=== PATIENT | male | born 1965 | race Caucasian/White ===

== ENCOUNTER 2017-05-24 13:38 | Inpatient (IN) | payer BC ==
[~2017-05-24] VITALS: Ht 193 cm; Wt 96.2 kg
[2017-05-24] MEDS ORDERED: PLEASE ENTER ALLERGIES MC SCH ×2 (14:30)
[2017-05-24] MEDS ORDERED: SODIUM CHLORIDE FLUSH 10ML SYR IVF ONE (14:30)
[2017-05-24 14:55] LABS: BLOOD UREA NITROGEN 17 mg/dL (7-18)
[2017-05-24] MEDS ORDERED: SODIUM CHLORIDE 0.9% 1,000 ML IV ONE (14:55)
[2017-05-24 15:04] LABS: IS PT STATUS REG ER OR PRE ER? YES
[2017-05-24] MEDS ORDERED: HEPARIN 5,000 UNITS/ML, 1ML ONE (15:23)
[2017-05-24] MEDS ORDERED: HEPARIN 25,000 UNITS/500ML PMX 500 ML ONE (15:24)
[2017-05-24] MEDS ORDERED: HEPARIN 5,000 UNITS/ML, 1ML IV ONE (15:30)
[2017-05-24] MEDS: HEPARIN 25,000 UNITS/500ML PMX 500 ML IV PRN (16:11)
[2017-05-24] MEDS ORDERED: ONDANSETRON 2MG/ML, 2ML IVPush PRN (16:30)
[2017-05-24] MEDS ORDERED: DOCUSATE 100 MG CAPSULE PO PRN (16:30)
[2017-05-24] MEDS ORDERED: ACETAMINOPHEN 325 MG TABLET PO PRN (16:30)
[2017-05-24] MEDS ORDERED: morphine SULFATE 10 MG/ML, 1ML IVPush PRN (16:30)
[2017-05-24] MEDS ORDERED: CALCIUM CARBONATE 500 MG TAB.CHEW PO PRN (16:30)
[2017-05-24] MEDS ORDERED: ONDANSETRON ODT 4 MG PO PRN (16:30)
[2017-05-24] MEDS ORDERED: NITROGLYCERIN 0.4 MG BOTTLE (25 TABS) SL PRN (16:30)
[2017-05-24 16:59] VITALS: BP 125/88
[2017-05-24] MEDS: SODIUM CHLORIDE 0.9% 1,000 ML IV SCH (17:03)
[2017-05-24] MEDS ORDERED: ALBUTEROL SULFATE 2.5 MG/3 ML NPPB PRN (17:30)
[2017-05-24] MEDS ORDERED: METH4TAB2 PO (18:17)
[2017-05-24] MEDS ORDERED: ALBUTEROL SULFATE 2.5 MG/3 ML NPPB SCH (21:00)
[2017-05-24] MEDS: GUAIFENESIN 100 MG/5 ML, 10ML UDC PO PRN (21:38)
[2017-05-24] MEDS: FAMOTIDINE 20 MG/2 ML IVPush SCH (21:38)
[2017-05-24 21:48] VITALS: BP 115/74
[2017-05-24 22:35] LABS: IS PT STATUS REG ER OR PRE ER? NO
[2017-05-24] MEDS: HEPARIN 5,000 UNITS/ML, 1ML IV PRN (22:48)
[2017-05-25] MEDS: SODIUM CHLORIDE 0.9% 1,000 ML IV SCH ×3 (02:47→21:01)
[2017-05-25 02:50] VITALS: BP 113/75
[2017-05-25 03:33] LABS: IS PT STATUS REG ER OR PRE ER? NO
[2017-05-25 05:37] LABS: BLOOD UREA NITROGEN 21 mg/dL (7-18)
[2017-05-25] MEDS: ASPIRIN 325 MG TABLET EC PO SCH (05:55)
[2017-05-25] MEDS: HEPARIN 5,000 UNITS/ML, 1ML IV PRN ×2 (05:55→14:33)
[2017-05-25 07:20] VITALS: BP 110/79
[2017-05-25] MEDS: FAMOTIDINE 20 MG/2 ML IVPush SCH ×2 (09:28→21:00)
[2017-05-25] MEDS: GUAIFENESIN 100 MG/5 ML, 10ML UDC PO PRN (09:28)
[2017-05-25] MEDS ORDERED: LIDOCAINE 1%, 20ML ONE (10:49)
[2017-05-25] MEDS ORDERED: MIDAZOLAM 1 MG/ML, 5ML ONE (11:03)
[2017-05-25] MEDS ORDERED: FENTANYL PF 100 MCG/2ML ONE (11:04)
[2017-05-25] MEDS: HEPARIN 25,000 UNITS/500ML PMX 500 ML IV PRN (12:08)
[2017-05-25 12:35] VITALS: BP 107/71
[2017-05-25 18:58] VITALS: BP 132/87
[2017-05-25] MEDS ORDERED: METHOCARBAMOL 500 MG TABLET PO ONE (20:00)
[2017-05-25] MEDS: HYDROcodone/APAP 5/325 TABLET PO PRN (22:27)
[2017-05-26 01:30] VITALS: BP 114/70
[2017-05-26] MEDS: HYDROcodone/APAP 5/325 TABLET PO PRN ×2 (01:58→05:36)
[2017-05-26] MEDS: SODIUM CHLORIDE 0.9% 1,000 ML IV SCH (05:37)
[2017-05-26] MEDS: ASPIRIN 325 MG TABLET EC PO SCH (05:37)
[2017-05-26 07:54] VITALS: BP 109/74
[2017-05-26] MEDS: FAMOTIDINE 20 MG/2 ML IVPush SCH ×2 (07:55→21:13)
[2017-05-26] MEDS: HEPARIN 25,000 UNITS/500ML PMX 500 ML IV PRN (10:29)
[2017-05-26 10:50] LABS: BLOOD UREA NITROGEN 21 mg/dL (7-18)
[2017-05-26] MEDS: HEPARIN 5,000 UNITS/ML, 1ML IV PRN (11:23)
[2017-05-26] MEDS: LIDODERM 5% PATCH TD SCH (12:16)
[2017-05-26 15:33] VITALS: BP 120/80
[2017-05-26] MEDS: GUAIFENESIN 100 MG/5 ML, 10ML UDC PO PRN (18:42)
[2017-05-26 20:12] VITALS: BP 130/87
[2017-05-26] MEDS: POLYETHYLENE GLYCOL 17 GM PACKET PO PRN (21:13)
[2017-05-26] MEDS: BENZONATATE 100 MG CAPSULE PO PRN (22:03)
[2017-05-27] MEDS: HEPARIN 25,000 UNITS/500ML PMX 500 ML IV PRN ×2 (00:11→14:02)
[2017-05-27 03:09] VITALS: BP 112/74
[2017-05-27] MEDS: FAMOTIDINE 20 MG/2 ML IVPush SCH (10:37)
[2017-05-27] MEDS: BENZONATATE 100 MG CAPSULE PO PRN (10:37)
[2017-05-27 10:44] VITALS: BP 115/78
[2017-05-27] MEDS: LIDODERM 5% PATCH TD SCH (15:17)
[2017-05-27 16:43] VITALS: BP 124/83
[2017-05-27 20:10] VITALS: BP 122/77
[2017-05-27] MEDS: POLYETHYLENE GLYCOL 17 GM PACKET PO PRN (21:23)
[2017-05-27] MEDS: FAMOTIDINE 20 MG TABLET PO SCH (21:23)
[2017-05-28] MEDS: HEPARIN 25,000 UNITS/500ML PMX 500 ML IV PRN (03:29)
[2017-05-28 03:33] VITALS: BP 112/70
[2017-05-28 05:42] LABS: BLOOD UREA NITROGEN 15 mg/dL (7-18)
[2017-05-28 06:06] LABS: DILUTE PROTHROMBIN TIME (DPT) 54.6 sec (0.0-55.0); DILUTE RUSSELL'S VIPER VENOM 58.8 sec (0.0-47.0); LUPUS REFLEX INTERPRETATION Comment: (.)
[2017-05-28 08:13] VITALS: BP 126/84
[2017-05-28] MEDS: FAMOTIDINE 20 MG TABLET PO SCH (08:59)
[2017-05-28] MEDS: POLYETHYLENE GLYCOL 17 GM PACKET PO PRN (09:00)
[2017-05-28] MEDS ORDERED: APIXABAN 5 MG TABLET PO SCH (12:00)
[2017-05-28] MEDS ORDERED: APIX5TAB PO (12:02)
[2017-05-28 13:07] VITALS: BP 115/72
[2017-05-28] MEDS: LIDODERM 5% PATCH TD SCH (13:10)
[2017-05-29 17:06] LABS: FACTOR II DNA ANALYSIS Negative (.)
== END 2017-05-28 15:00 | disposition home or self-care (01) | DRG 167 ==
LOC: ED 14:56 → EDIP 14:57 → ED 15:15 → 5SO 16:38 → DCLOUNGE 05-28 14:22
PROVIDERS: ADMIT Internal Medicine; ATTEND Internal Medicine
PROC: 06H03DZ Insertion of Intraluminal Device into Inferior Vena Cava, Percutaneous Approach (ICD-10-PCS; principal; 2017-05-25)
DX: I26.99 Other pulmonary embolism without acute cor pulmonale (principal); I82.431 Acute embolism and thrombosis of right popliteal vein; E87.1 Hypo-osmolality and hyponatremia; N17.9 Acute kidney failure, unspecified; E44.0 Moderate protein-calorie malnutrition; D72.829 Elevated white blood cell count, unspecified; I27.2 Other secondary pulmonary hypertension; D75.89 Other specified diseases of blood and blood-forming organs; Z68.26 Body mass index [BMI] 26.0-26.9, adult; Z80.1 Family history of malignant neoplasm of trachea, bronchus and lung; Z81.8 Family history of other mental and behavioral disorders; Z79.01 Long term (current) use of anticoagulants
CPT/HCPCS: 36415; 37191; 76937; 80048; 80061; 81003; 81240; 81241; 82040; 83735; 83880; 84443; 84484; 85025; 85300; 85303; 85306; 85520; 85610; 85613; 85670; 85705; 85730; 85732; 86147; 87070; 87205; 93005; 93306; 93970; 94640; 96374; C1760; C1894; J1644; J2250; J3010; J3490; J7613; C1880; J7030; S0028